=== PATIENT | male | born 1970 | race Hispanic/Latino ===

== ENCOUNTER 2024-12-17 09:02 | Emergency (ER) | payer BC ==
[~2024-12-17] VITALS: Ht 170.2 cm; Wt 97.5 kg
[2024-12-17] MEDS ORDERED: SODIUM CHLORIDE 0.9% 100 ML ONE (09:26)
[2024-12-17] MEDS ORDERED: IOPAMIDOL 370 MG/ML 100 ML INFUS..BTL INJ ONE (09:26)
[2024-12-17 09:41] LABS: BASOPHILS % 0.6 % (0.0-1.0); EOSINOPHILS % 3.6 % (0.0-6.0); LYMPHOCYTES % 23.8 % (18.0-39.1); MONOCYTES % 8.1 % (4.4-11.3); NEUTROPHILS % 63.6 % (38.7-80.0); RED CELL DISTRIBUTION WIDTH 12.5 % (11.7-14.4)
[2024-12-17 10:17] LABS: INR 0.95
[2024-12-17 10:25] LABS: EST GLOMERULAR FILTRATION RATE 92.0 ML/MIN (>=60)
[2024-12-17] MEDS: SODIUM CHLORIDE 0.9% 1000ML 1,000 ML IV STA (10:26)
[2024-12-17 11:00] VITALS: PULSE 80; RESP 18; TEMP 98.2; O2SAT 97
[2024-12-17] MEDS ORDERED: VALTREX1000 MG PO (11:12)
[2024-12-17] MEDS ORDERED: PREDNISONE50 MG PO (11:12)
== END 2024-12-17 11:30 | disposition home or self-care (01) ==
LOC: ER 09:14
DX: G51.0 Bell's palsy (principal); H92.01 Otalgia, right ear; I10 Essential (primary) hypertension; E11.9 Type 2 diabetes mellitus without complications; E78.5 Hyperlipidemia, unspecified
CPT/HCPCS: 36415; 70496; 70498; 70551; 71045; 80053; 82550; 83735; 84443; 84484; 85025; 85610; 85730; 93005; 99284; J7030; J7050; Q9967

== ENCOUNTER 2025-01-03 09:49 | Outpatient (RCR) | payer BC ==
[~2025-01-03 09:49] MED LIST: PREDNISONE50 MG PO; VALTREX1000 MG PO
== END 2025-01-06 ==
LOC: ST 09:49
PROVIDERS: ATTEND Family Medicine Adult Medicine
DX: G51.0 Bell's palsy (principal); R20.0 Anesthesia of skin

== ENCOUNTER 2025-01-24 12:00 | Outpatient (RCR) | payer BC | END 2025-02-05 | LOC: ST 12:00 | PROVIDERS: ATTEND Family Medicine Adult Medicine | DX: R13.10 Dysphagia, unspecified (principal) ==